=== PATIENT | male | born 1970 | race Caucasian/White ===

== ENCOUNTER 2024-08-13 13:49 | Emergency (ER) | payer OTHER, SELFPAY ==
[2024-08-13] VITALS (9 sets, daily range): BP systolic 98–126; BP diastolic 65–77; BMI 28.6
[2024-08-13 13:58] LABS: Glucose - Point of Care 137 mg/dl (70-99)
[2024-08-13] MEDS: ZOFRAN 4 MG IV (14:01)
[2024-08-13] MEDS: NSS 1000 IV (14:03)
--- NOTE | 2024-08-13 14:05 | ED.GENMED ---
History of Present Illness
General
Chief Complaint: Dizziness
Time Seen by Provider: 08/13/24 14:04
History of Present Illness
History of Present Illness:
Patient is a 53-year-old man presenting to the emergency department with dizziness. Patient states that he woke up around 7 AM with dizziness lightheadedness nausea. He does have a mild headache that feels similar to his migraines. He has
associated photophobia phonophobia. He also has visual field changes associated with his migraine as well as dizziness. Secondary to the nausea he has had less to eat. He did start to have diarrhea earlier this morning. No travel or antibiotics.
No alcohol or drug use. Patient was in triage when he started become nauseous vomited and then had a syncopal event while he was sitting. He immediately came into the resuscitation room. Per patient's who is at bedside he is prone to
vasovagal syncope. Patient does state that he remembers getting lightheaded dizzy prior to passing out. He denies any chest pain shortness of breath or palpitations.
Past History
Past History
ED Past Medical History: None
ED Past Surgical History: Cholecystectomy and Other (Hernia repair)
Social History
Tobacco: Non-smoker
Alcohol: None
Drug: None
Living: with family
Phy Exam
Physical Exam
Physical Exam:
GENERAL: Appears pale and diaphoretic
HEENT: normocephalic, extraocular movements intact, dry oral mucosa
NECK: normal inspection
RESPIRATORY: no respiratory distress, clear to auscultation bilaterally
CARDIOVASCULAR: regular rate and rhythm
ABDOMEN/: soft, non-distended, diffusely tender to palpation no rebound or guarding
EXTREMITIES: non-tender, no edema/swelling
NEUROLOGIC: awake and alert,, equal strength in upper and lower extremities, no sensory deficits moves all extremities
SKIN: warm
Course
Orders/Labs/Results
Orders:
Orders
08/13/24 13:51
Electrocardiogram (*1) Urgent
Reason for Study: Chest Pain
EKG- Treatment ONCE
08/13/24 13:59
Cardiac Monitoring- Treatment ONCE
IV Insert/Care/Rem.- Treatment PRN
08/13/24 14:00
Ondansetron Injectable [Zofran] 4 mg .ROUTE .STK-MED ONE
08/13/24 14:01
Ondansetron Injectable [Zofran] 4 mg IV NOW STA
08/13/24 14:02
0.9% Sodium Chloride 500 ml [Nss] 1,000 ml IV BOLUS
08/13/24 14:04
CT Abd/pelvis W Iv Cont Urgent
Comment:
Reason For Exam: abd pain, vomit
Complete Blood Count/With Diff Urgent
Comprehensive Metabolic Panel Urgent
08/13/24 14:21
Diphenhydramine [Benadryl] 25 mg IV NOW STA
Metoclopramide [Reglan] 10 mg IV NOW STA
08/13/24 16:42
Ketorolac [Toradol] 30 mg .ROUTE .STK-MED ONE
08/13/24 16:43
Ketorolac [Toradol] 15 mg IV NOW STA
08/13/24 17:07
Ketorolac [Toradol] 30 mg IV NOW STA
Abnormal Lab Results
08/13/24 08/13/24
13:57 14:04
WBC 16.0 H 10^3/uL
(4.8-10.8)
MCH 31.3 H pg
(27.0-31.0)
MPV 10.9 H fL
(7.4-10.4)
Abs Immat Gran (auto) 0.1 H 10^3/uL
(0-0.05)
Absolute Neuts (auto) 12.8 H 10^3/uL
(1.4-6.5)
Absolute Monos (auto) 1.0 H 10^3/uL
(0.1-0.6)
Neutrophils % 80.2 H %
(42.2-75.2)
Lymphocytes % 12.7 L %
(20.5-51.1)
Carbon Dioxide 20 L mmol/L
(22-30)
Glucose 162 H mg/dl
(70-99)
POC Glucose 137 H mg/dl
(70-99)
08/13/24 14:04
08/13/24 14:04
Vital Signs
Initial and Last Documented VS:
Initial Vital Signs
Pulse Resp Pulse Ox
86 18 95
08/13/24 13:57 08/13/24 13:57 08/13/24 13:57
Last Documented Vital Signs
Temp Pulse Resp BP Pulse Ox
98.5 F 88 16 98/65 94
08/13/24 14:00 08/13/24 17:15 08/13/24 17:00 08/13/24 17:00 08/13/24 17:15
MDM/Problems Addressed
Differential Diagnosis Includes:
Patient is a 53-year-old man presenting to the emergency department with lightheadedness dizziness nausea and a migraine where he then had a syncopal event out in triage. During my evaluation his vitals are unremarkable. On exam he is diaphoretic
and slightly pale with diffuse abdominal tenderness but no neurodeficits. Differential consists of viral gastritis, migraine, vertigo. Syncope likely vasovagal in nature. Less likely be cardiac arrhythmia. The migraine is similar in nature to
his prior migraines and he does have associated dizziness and vision changes which she states were normal for him. There are no red flags such as thunderclap headache or worst headache of his life to suggest subarachnoid. Less likely be meningitis
as he is afebrile with no neck stiffness. Will check blood work and CT scan of the abdomen. He previously did take both Tylenol and Aleve prior to arrival so we will hold off on migraine cocktail. Will give antiemetic will give IV fluids.
*Critical Care Note
Total Time (30-74mins, 75-104mins- exclusive of procedures): Not Applicable
Update Note
Update Note:
On reevaluation patient appears much better. His color is back to his normal. Blood work came back that does show leukocytosis. Certainly could be secondary to the vomiting diarrhea versus gastroenteritis. CT scan does show enteritis. Patient
does state that he did have small episodes of diarrhea earlier today. He has not had any since he has been here. We were unable to obtain a stool culture. On reevaluation patient's headache is resolved. His vision changes are resolved. He
states that the dizziness is also resolved. He does state that he gets the dizziness with his migraines. He was able to tolerate p.o. He ambulated without difficulty. Given the leukocytosis as well as a syncopal event I did discuss admission for
observation however patient and patient's who is at bedside would prefer to be discharged home. Given that he is tolerating p.o. is asymptomatic at this time I do think this is appropriate. Will give patient a short course of Zofran. Strict
return precautions given that included persistent nausea vomiting, dehydration, syncopal event. All questions answered. Will discharge at this time.
ED Attending Note
-
Portions of this chart may have been created with voice recognition software.� Occasional wrong word or��sound alike� substitutions may have occurred due to the inherent limitations of voice recognition software.
Discharge Plan
Departure
Patient Disposition: Home (Routine Discharge)
Date of Disposition: 08/13/24
Time of Disposition: 17:37
Patient with high blood pressure during this ER visit?: No
Discharge Problem:
Gastroenteritis
Instructions: Viral gastroenteritis in adults
Prescriptions:
New
ondansetron 4 mg tablet,disintegrating
4 mg PO TID PRN (Reason: nausea and vomiting) Qty: 5 0RF
No Action
cholecalciferol (vitamin D3) [Vitamin D3] 1,000 UNIT capsule
1,000 unit PO DAILY
[id number]-vit K-lycop [Men's Multivitamin] 1 EACH tablet
1 ea PO DAILY
famotidine 20 MG tablet
20 mg PO BID Qty: 28 0RF
Rx Instructions:
Take 20 mg twice a day for 14 days
ascorbic acid (vitamin C) [Vitamin C] 500 MG tablet
1,000 mg PO BID Qty: 56 0RF
Rx Instructions:
Take 1,000 mg twice a day for 14 days
aspirin 81 MG tablet,chewable
81 mg PO DAILY Qty: 14 0RF
Rx Instructions:
Take 81 mg daily for 14 days
albuterol sulfate 1 PUFF HFA aerosol inhaler
2 puff inhalation R Q4HPRN PRN (Reason: shortness of breath) Qty: 1 0RF
zinc sulfate 220 MG capsule
220 mg PO DAILY Qty: 14 0RF
Rx Instructions:
Take 220 mg daily for 14 days
cholecalciferol (vitamin D3) 1,000 UNITS tablet
2,000 units PO DAILY Qty: 28 0RF
Rx Instructions:
Take 2,000 units daily for 14 days
melatonin 5 MG tablet
5 mg PO HS Qty: 14 0RF
Rx Instructions:
Take 5 mg daily at bedtime for 14 days
Referrals:
Viktor Guevara MD [Family Provider] -
Activity Restrictions/Additional Instructions:
You have been evaluated in the Emergency Department today for nausea and vomiting. Your evaluation suggests that your symptoms are most likely due to viral illness which will improve on its own with rest and fluids. Remember to drink plenty of
fluids at home.
I did prescribe you a short course of Zofran which is a nausea medicine.
Please follow up with your primary care physician.
Return to the Emergency Department if you experience worsening or uncontrolled pain, inability to tolerate fluids by mouth, difficulty breathing, fevers 100.4�F or greater, recurrent vomiting, or any other concerning symptoms.
Thank you for choosing us for your care.
Interventions
Interventions:
*Risk Screen - Suicide Last Done: 08/13/24 14:11
*General Assessment Last Done: 08/13/24 14:11
*Neglect/Abuse Screening Last Done: 08/13/24 14:11
ED- Fall Risk Assessment Last Done: 08/13/24 14:11
*ED COVID-19 Vaccine History Last Done: 08/13/24 14:11
ED- Neurological Assessment Last Done: 08/13/24 14:15
ED- Cardiac Assessment Last Done: 08/13/24 14:15
ED Swallowing Screen Last Done: 08/13/24 16:38
Discharge Date and Time
Print Language: BRITISH
--- NOTE | 2024-08-13 14:07 | EDRN ---
Pt had syncopal episode in chair. Pt brought back to room #40 from triage pale, weak, and diaphoretic. Pt has migraine history.
[2024-08-13 14:14] LABS: % Basophils 0.2 % (0-2); % Eosinophils 0.7 % (0-6); % Immature Granulocytes 0.3 % (0-0.5); % Lymphocytes 12.7 % (20.5-51.1); % Monocytes 5.9 % (1.7-9.3); % Neutrophils 80.2 % (42.2-75.2); Absolute Eosinophils 0.1 10^3/uL (0-0.7); Absolute Immature Granulocytes 0.1 10^3/uL (0-0.05); Absolute Neutrophils 12.8 10^3/uL (1.4-6.5); Hematocrit 47.5 % (39.0-52.0); Hemoglobin 16.2 g/dL (13.0-18.0); Mean Corp Hgb Conc. 34.1 g/dL (33.0-37.0); Mean Corpuscular Hgb 31.3 pg (27.0-31.0); Mean Corpuscular Volume 91.7 fL (80.0-94.0); Mean Platelet Volume 10.9 fL (7.4-10.4); Nucleated Red Blood Cells % 0 % (-); Platelet Count 202 10^3/uL (130-400); Red Blood Cell Count 5.18 10^6/uL (4.70-6.10); Red Cell Dist. Width 12.8 % (11.5-14.5)
--- NOTE | 2024-08-13 14:16 | EDRN ---
Pt states now he had cramping in his chest and leslie feet prior to arrival, none now.
[2024-08-13 14:23] LABS: ALT (SGPT) 38 U/L (0-50); AST (SGOT) 44 U/L (17-59); Albumin 4.7 g/dl (3.5-5.0); Alkaline Phosphatase 123 U/L (38-126); Blood Urea Nitrogen 16 mg/dl (9-20); Calcium 9.4 mg/dl (8.4-10.2); Carbon Dioxide 20 mmol/L (22-30); Chloride 105 mmol/L (98-107); Estimated Creatinine Clearance 86 ml/min; Glucose 162 mg/dl (70-99); Potassium 3.6 mmol/L (3.5-5.1); Sodium 139 mmol/L (135-145); Total Bilirubin 0.9 mg/dl (0.2-1.3); Total Protein 7.1 g/dl (6.3-8.2); eGFR > 60.00
[2024-08-13] MEDS: BENADRYL 25 MG IV (14:35)
[2024-08-13] MEDS: REGLAN 10 MG IV (14:35)
--- NOTE | 2024-08-13 14:38 | EDRN ---
Pt awoke around 7:00 am w/ vertigo spinning type of dizziness and nausea. Pt states he was also feeling pre-migrainal ( has history of migraines, seizures and syncope). Pt around 11:30-12:00 started to feel better. Symptoms not going away so decided
to come to ER. Pt in triage room during interview started to vomit (had only nausea previously) and passed out in triage. Pt states he continues w/ pre-migrainal symptoms of sensitivity to noise and light. Pt took 2 Aleve in am and 2 aleve prior to
coming to ER and a homeopathic called motion calm from [employer].
[2024-08-13] MEDS: TORADOL 30 MG IV (16:45)
--- NOTE | 2024-08-13 17:38 | EDRN ---
Pt ambulated to [facility] at this time w/out difficulty, no dizziness, no vertigo, no nausea.
== END 2024-08-13 17:50 | disposition home or self-care (01) ==
LOC: EMR 13:49
PROVIDERS: EMERGENCY PHYSICIAN Student in an Organized Health Care Education/Training Program; FAMILY PHYSICIAN Internal Medicine
DX: R55 Syncope and collapse (principal); K52.9 Noninfective gastroenteritis and colitis, unspecified; R51.9 Headache, unspecified; H53.8 Other visual disturbances; Z90.49 Acquired absence of other specified parts of digestive tract; Z91.048 Other nonmedicinal substance allergy status
CPT/HCPCS: 99285; 96375 ×3; 96361; 96374; 74177; 80053; 82962; 85025; 93005; Q9967